=== PATIENT | male | born 1965 | race Caucasian/White ===

== ENCOUNTER 2024-10-01 09:47 | Outpatient (AMB) | payer OTHER, SELFPAY ==
--- OUTSIDE RECORDS SUMMARY | 2024-10-01 10:53 | XMS_ITS | Patient Health Record ---
[facility] Address [address] [facility] [place] [address] Care Team Providers Care Director Instrumentation Name Role Phone Gurinder Judd MD Primary Care Provider Ines Baker Unavailable [phone] Allergies No Known Allergies Reason For Referral No Information Medications Medication SIG (Take, Route, Frequency, Duration) Notes Start Date End Date Status Pravastatin Sodium 40 MG 1 tablet Orally Once a day; Duration: 30 day(s) Unknown Valsartan 320 MG Oral; Duration: 90 Days Active Vitamin D3 Active Diovan 320 MG 1 tablet Orally Once a day; Duration: 30 day(s) Unknown Losartan Potassium-HCTZ 40 mg Unknown amLODIPine Besylate 10 MG Oral; Duration: 90 Days Active Albuterol Sulfate HFA 108 (90 Base) MCG/ACT Inhalation; Duration: 25 Days Active Advair HFA 115-21 MCG/ACT Inhalation; Du ration: 30 Days Active Joint Support Active Aspirin Active Feldene 20 MG 1 capsule with food Orally Once a day; Duration: 30 day(s) 07/26/2011 Unknown Atorvastatin Calcium 40 MG Oral; Duration: 90 Days Active Fish Oil Active Social History Tobacco Use: Social History Observation Description Date Details (start date - stop date) Never Smoker NA - NA Tobacco Use/Smoking Question Answer Notes Are you a: nonsmoker Additional Findings: Tobacco Non-User Current no n-smoker Alcohol Screen Question Answer Notes Did you have a drink contain ing alcohol in the past year? Yes How often did you have a dri nk containing alcohol in the past year? 4 or more times a week (4 points) Points 4 Interpretation Positive Tobacco use other than smoking: Question Answer Notes Are you an other tobacco user? No Problems Problem Type SNOMED Code ICD Code Onset Dates Problem Status W/U Status Risk Notes Problem Plantar fasciitis (M72.2) Active confirmed Resistant to previous conservative treatment Problem Plantar fasciitis of right foot (23259184165 323032) Plantar fasciitis of right foot (M72.2) Active confirmed Problem Interstitial myositis of right foot (M60.171) Active confirmed Vital Signs Blood pressure diastolic 75 mm Hg 01/16/2024 Height 5ft6in in 01/16/2024 Blood pressure systolic 125 mm Hg 01/16/2024 Weight 275 lbs 01/16/2024 BMI 44.38 kg/m2 01/16/2024 Encounters Encounter Location Date Provider Diagnosis [facility] [address] [address] 11/24/2023 Ines Perica Pain in right foot M79.671 ; Plantar fasciitis of right foot M72.2 ; Calcaneal spur, right foot M77.31 ; Interstitial myositis of right foot M60.171 and Bursitis of right foot M77.[address] [facility] [address] [address] 01/16/2024 Ines Perica Plantar fasciitis of right foot M72.2 and Calcaneal spur, right foot M77.31 Assessments Encounter Date Diagnosis (ICD Code) Assessment Notes Treatment Notes Treatment Clinical Notes Section Notes 11/24/2023 Pain in right foot (ICD-10 - M79.671) 11/24/2023 Plantar fasciitis of right foot (ICD-10 - M72.2) Patient Educated with: HEEL CORD STRETCHES.pdf (HEEL CORD STRETCHES.pdf) Patient Educated with: RICE THERAPY.pdf (RICE THERAPY.pdf) 01/16/2024 Calcaneal spur, right foot (ICD-10 - M77.31) 01/16/2024 Plantar fasciitis of right foot (ICD-10 - M72.2) 11/24/2023 Calcaneal spur, right foot (ICD-10 - M77.31) 11/24/2023 Interstitial myositis of right foot (ICD-10 - M60.171) 11/24/2023 Bursitis of right foot (ICD-10 - M77.51) 11/24/2023 Other Patient Educated with: RICE THERAPY.pdf (RICE THERAPY.pdf) Patient Educated with: INJECTIONTHERA PY.pdf (INJECTIONTHER APY.pdf) 01/16/2024 Other Plan Of Treatment Pending Test Test Name Order Date X ray : Foot, left 3V 01/30/2019 X ray : Foot, right 3V 11/24/2023 X ray : Foot, right 3V 04/01/2011 [id number] TENDON SHEATH/LIGAMENT 0 04/01/201175520,[id number] TENDON SHEATH/LIGAMENT 0 07/26/201198161,[id number] TENDON SHEATH/LIGAMENT 0 08/30/2011 [id number] 3mg 08/30/2011 Insurance Providers Payer Name Payer Address Payer Phone Subscriber Number Group Number Insured Name Patient Relationship to Insured Coverage Start Date Coverage End Date [facility] [address] [place] [address] [id number] Gurmeet Rosario Spouse - patient is the spouse of the insured Medical (General) History Medical History History ICD Code hypertension asthma joint/bone implants/screws both knee replacement Surgical History Surgery Date(Month/Year) carpal tunnel release knee surgery ( miniscus ) knee replacement 05/11/20 - 06/21/20 Hospitalization History Reason Date(Month/Year) [facility] for knee replace katherin
== END 2024-10-01 10:42 | disposition home or self-care (01) ==
LOC: HO.HMGAL 09:47
PROVIDERS: Visit Provider Registered Nurse Emergency
DX: J30.89 Other allergic rhinitis (principal)
CPT/HCPCS: 95117; 95165

== ENCOUNTER 2024-11-18 08:31 | Outpatient (AMB) | payer OTHER, SELFPAY ==
--- OUTSIDE RECORDS SUMMARY | 2024-11-18 09:07 | XMS_ITS | Patient Health Record ---
Author [facility] Address [address] [facility] [address] Care Team Providers Care Customer Engineer Name Role Phone Gurinder Judd MD Primary Care Provider Ines Baker Unavailable [phone] Allergies No Known Allergies Reason For Referral [...] W/U Status Risk Notes Problem Plantar fasciitis (203802305) Plantar fasciitis (M72.2) Active confirmed Resistant to previous conservative treatment Problem Plantar fasciitis of right foot (38404502447430 101) Plantar fasciitis of right foot (M72.2) Active confirmed Problem Interstitial myositis (51805292) Interstitial myositis of right foot (M60.171) Active confirmed Vital Signs Blood pressure diastolic 75 mm Hg 01/16/2024 Height 5ft6in in 01/16/2024 Blood pressure systolic 125 mm Hg 01/16/2024 Weight 275 lbs 01/16/2024 BMI 44.38 kg/m2 01/16/2024 Encounters Encounter Location Date Provider Diagnosis [facility] [address] [address] 11/24/2023 Ines Perica Pain in right foot M79.671 ; Plantar fasciitis of right foot M72.2 ; Calcaneal spur, right foot M77.31 ; Interstitial myositis of right foot M60.171 and Bursitis of right foot M77.[address] [facility] [address] [address] 01/16/2024 Ines Perica Plantar fasciitis of right [...] X ray : Foot, right 3V 04/01/2011 [id number] TENDON SHEATH/LIGAMENT 0 04/01/201159857,[id number] TENDON SHEATH/LIGAMENT 0 07/26/201187359,[id number] TENDON SHEATH/LIGAMENT 0 08/30/2011 [id number] 3mg 08/30/2011 Insurance Providers Payer Name Payer Address Payer Phone Subscriber Number Group Number Insured Name Patient Relationship to Insured Coverage Start Date Coverage End Date [facility] [address] [place] [address] [id number] Gurmeet Rosario Spouse - patient is the spouse of the insured Medical (General) History Medical History History ICD Code hypertension asthma joint/bone implants/screws both knee replacement Surgical History Surgery Date(Month/Year) carpal tunnel release knee surgery ( miniscus ) knee replacement 05/11/20 - 06/21/20 Hospitalization History Reason Date(Month/Year) [facility] for knee replace katherin
== END 2024-11-18 08:59 | disposition home or self-care (01) ==
LOC: HO.HMGAL 08:31
PROVIDERS: PCP Internal Medicine; Visit Provider Registered Nurse Emergency
DX: J30.89 Other allergic rhinitis (principal)
CPT/HCPCS: 95117; 95165

== ENCOUNTER 2025-01-20 09:30 | Outpatient (AMB) | payer OTHER, SELFPAY | END 2025-01-20 09:30 | disposition home or self-care (01) | LOC: HO.HMGAL 09:30 | PROVIDERS: PCP Internal Medicine; Visit Provider Registered Nurse Emergency | DX: J30.89 Other allergic rhinitis (principal) | CPT/HCPCS: 95117; 95165 ==